=== PATIENT | male | born 1985 | race Caucasian/White ===

== ENCOUNTER 2018-08-13 16:06 | Emergency (ER) | payer OTHER ==
[2018-08-13] MEDS ORDERED: ONDANSETRON (ODT) 4 MG TAB ODT (19:13)
== END 2018-08-13 21:11 | disposition left against medical advice (07) ==
LOC: FTE 16:06
DX: R11.2 Nausea with vomiting, unspecified (principal); F17.210 Nicotine dependence, cigarettes, uncomplicated; R40.2412 Glasgow coma scale score 13-15, at arrival to emergency department; F12.10 Cannabis abuse, uncomplicated
CPT/HCPCS: 99282; Z7502